=== PATIENT | male | born 1980 | race Caucasian/White ===

== ENCOUNTER → 2021-08-10 | Outpatient (REF) | payer OTHER | LOC: M SMT 14:39 | PROVIDERS: ATTEND Urology | DX: Z30.2 Encounter for sterilization (principal) ==

== ENCOUNTER → 2021-11-08 | Outpatient (REF) | payer OTHER ==
[2021-11-08 13:49] LABS: SEMEN APPEARANCE OPAQUE (OPAQUE); SEMEN VISCOSITY LIQUID (LIQUID); WBC CONCENTRATION >1 M/ml (<=1 M/ml)
== END ==
LOC: M SMT 13:29
PROVIDERS: ATTEND Urology
DX: Z30.8 Encounter for other contraceptive management (principal)

== ENCOUNTER → 2022-09-17 | Outpatient (REF) | payer OTHER ==
[2022-09-17 13:51] LABS: BASO % 0.6 % (0.0-1.0); EOS # 0.3 10^3/uL (0.0-0.5); EOS % 4.1 % (0.0-3.0); HEMATOCRIT 45.5 % (42.0-52.0); HEMOGLOBIN 15.7 g/dl (13.5-17.5); LYMPH # 2.4 10^3/uL (1.5-5.0); LYMPH % 35.9 % (24.0-44.0); MEAN CORPUSCULAR HEMOGLOBIN 30.3 pg (27.0-33.0); MEAN CORPUSCULAR HGB CONC 34.5 g/dl (32.0-36.5); MEAN CORPUSCULAR VOLUME 87.8 fl (80.0-96.0); MONO # 0.5 10^3/uL (0.0-0.8); MONO % 7.8 % (2.0-8.0); NEUTROPHILS # 3.5 10^3/uL (1.5-8.5); NEUTROPHILS % 51.3 % (36.0-66.0); PLATELET COUNT, AUTOMATED 181 10^3/uL (150-450); RED BLOOD COUNT 5.18 10^6/uL (4.30-6.10); WHITE BLOOD COUNT 6.8 10^3/uL (4.0-10.0)
[2022-09-17 13:55] LABS: HEMOGLOBIN A1c 5.3 % (4.0-6.0)
[2022-09-17 14:17] LABS: CREATININE, URINE 132.3 MG/DL; MAU/CREAT RATIO 2.2 MCG/MG (0.0-30.0)
[2022-09-17 14:25] LABS: ALBUMIN 4.3 G/DL (3.2-5.2); ALKALINE PHOSPHATASE 79 U/L (46-116); ALT/SGPT 41 U/L (7.0-40); AST/SGOT 29 U/L (<34); BILIRUBIN,TOTAL 2.1 MG/DL (0.3-1.2); BLOOD UREA NITROGEN 19 MG/DL (9-23); CALCIUM LEVEL 9.2 MG/DL (8.5-10.1); CARBON DIOXIDE LEVEL 27 MMOL/L (20-31); CHLORIDE LEVEL 104 MMOL/L (98-107); CHOLESTEROL LEVEL 172 MG/DL (<200); CHOLESTEROL RISK RATIO 3.37 (<5); CREATININE FOR GFR 1.01 MG/DL (0.70-1.30); FOLATE 14.8 NG/ML (>5.4); FREE T4 1.08 NG/DL (0.89-1.76); GLOMERULAR FILTRATION RATE > 60.0 (>60); GLUCOSE, FASTING 85 MG/DL (60-100); LDL CHOLESTEROL 98.8 MG/DL (<100); POTASSIUM SERUM 4.7 MMOL/L (3.5-5.1); SODIUM LEVEL 138 MMOL/L (136-145); THYROID STIMULATING HORMONE 2.514 uIU/ML (0.55-4.78); TOTAL PROTEIN 7.1 G/DL (5.7-8.2); TRIGLYCERIDES LEVEL 111 MG/DL (<150); VITAMIN B12 LEVEL 445 PG/ML (211-911)
== END ==
LOC: M SFHCADAM 10:22
PROVIDERS: ATTEND Physician Assistant
DX: R03.0 Elevated blood-pressure reading, without diagnosis of hypertension (principal); M25.512 Pain in left shoulder; G89.29 Other chronic pain; E66.9 Obesity, unspecified; R00.1 Bradycardia, unspecified; Z13.220 Encounter for screening for lipoid disorders; Z13.1 Encounter for screening for diabetes mellitus

== ENCOUNTER → 2022-09-17 | Outpatient (CLI) | payer OTHER | LOC: M ADAMS 10:34 | PROVIDERS: ATTEND Physician Assistant | DX: M25.512 Pain in left shoulder (principal) ==

== ENCOUNTER → 2022-10-11 | Outpatient (CLI) | payer OTHER | LOC: M WHC 07:09 | PROVIDERS: ATTEND Physician Assistant | DX: R74.8 Abnormal levels of other serum enzymes (principal); K76.0 Fatty (change of) liver, not elsewhere classified ==

== ENCOUNTER → 2023-10-15 | Outpatient (REF) | payer OTHER ==
[2023-10-15 13:42] LABS: HEMATOCRIT 46.4 % (42.0-52.0); MEAN CORPUSCULAR HGB CONC 34.5 g/dl (32.0-36.5); MEAN CORPUSCULAR VOLUME 86.9 fl (80.0-96.0); PLATELET COUNT, AUTOMATED 192 10^3/uL (150-450); RED BLOOD COUNT 5.34 10^6/uL (4.30-6.10)
[2023-10-15 13:55] LABS: ALBUMIN 4.1 G/DL (3.2-5.2); ALKALINE PHOSPHATASE 92 U/L (46-116); ALT/SGPT 42 U/L (7.0-40); AST/SGOT 30 U/L (<34); BILIRUBIN,TOTAL 1.1 MG/DL (0.3-1.2); BLOOD UREA NITROGEN 17 MG/DL (9-23); CALCIUM LEVEL 9.5 MG/DL (8.5-10.1); CARBON DIOXIDE LEVEL 27 MMOL/L (20-31); CHLORIDE LEVEL 104 MMOL/L (98-107); CHOLESTEROL LEVEL 176 MG/DL (<200); CHOLESTEROL RISK RATIO 3.03 (<5); CREATININE FOR GFR 1.15 MG/DL (0.70-1.30); GLOMERULAR FILTRATION RATE > 60.0 (>60); GLUCOSE, FASTING 102 MG/DL (60-100); HDL CHOLESTEROL 57.9 MG/DL (>40); LDL CHOLESTEROL 104.7 MG/DL (<100); NON-HDL-C 118.1 MG/DL; POTASSIUM SERUM 4.5 MMOL/L (3.5-5.1); SODIUM LEVEL 138 MMOL/L (136-145); TOTAL PROTEIN 7.1 G/DL (5.7-8.2); TRIGLYCERIDES LEVEL 67 MG/DL (<150)
[2023-10-15 13:59] LABS: HEMOGLOBIN A1c 5.2 % (4.0-6.0)
[2023-10-15 14:13] LABS: CREATININE, URINE 93.6 MG/DL
[2023-10-15 14:14] LABS: MALB URINE SIEMENS < 3.0 MG/L; MAU/CREAT RATIO 3.2 MCG/MG (0.0-30.0)
== END ==
LOC: M SFHCADAM 07:44
PROVIDERS: ATTEND Physician Assistant
DX: I10 Essential (primary) hypertension (principal); K76.0 Fatty (change of) liver, not elsewhere classified; E66.9 Obesity, unspecified; Z13.220 Encounter for screening for lipoid disorders; Z13.1 Encounter for screening for diabetes mellitus

== ENCOUNTER → 2025-01-31 | Outpatient (REF) | payer OTHER ==
[2025-01-31 13:55] LABS: PLATELET COUNT, AUTOMATED 218 10^3/uL (150-450)
[2025-01-31 14:01] LABS: ALT/SGPT 34.0 U/L (7.0-40); AST/SGOT 23.0 U/L (<34); CALCIUM LEVEL 9.4 MG/DL (8.5-10.1); CARBON DIOXIDE LEVEL 25.0 MMOL/L (20-31); CHLORIDE LEVEL 105.0 MMOL/L (98-107); CHOLESTEROL LEVEL 169.0 MG/DL (<200); CHOLESTEROL RISK RATIO 3.37 (<5); CREATININE FOR GFR 1.05 MG/DL (0.70-1.30); GLOMERULAR FILTRATION RATE 89.2 (>60); LDL CHOLESTEROL 98.7 MG/DL (<100); NON-HDL-C 118.9 MG/DL; POTASSIUM SERUM 4.4 MMOL/L (3.5-5.1); SODIUM LEVEL 142.0 MMOL/L (136-145); TRIGLYCERIDES LEVEL 101.0 MG/DL (<150)
[2025-01-31 14:28] LABS: ESTIMATED AVERAGE GLUCOSE 108.0 MG/DL (60-110)
== END ==
LOC: M SFHCADAM 07:44
PROVIDERS: ATTEND Physician Assistant
DX: I10 Essential (primary) hypertension (principal); E66.9 Obesity, unspecified; K76.0 Fatty (change of) liver, not elsewhere classified; Z13.1 Encounter for screening for diabetes mellitus